=== PATIENT | female | born 1955 | race Caucasian/White ===

== ENCOUNTER → 2017-03-09 | Outpatient (CLI) | payer BC ==
[~2017-03-09] MED LIST: ACET325T82 PO; ASPI-232 PO; DOXY100C2 PO; IBUP-103 PO; MULT-884 PO
[2017-03-09 16:20] LABS: THYROID STIMULATING HORMONE 2.22 uIu/ml (0.300-4.500)
== END | disposition home or self-care (01) ==
LOC: C.LAB1850 14:44
PROVIDERS: ATTEND Physician Assistant
DX: E05.00 Thyrotoxicosis with diffuse goiter without thyrotoxic crisis or storm (principal)

== ENCOUNTER → 2017-06-10 | Outpatient (CLI) | payer BC ==
[~2017-06-10] MED LIST changes: -DOXY100C2 PO
[2017-06-10 18:07] LABS: THYROID STIMULATING HORMONE 3.22 uIu/ml (0.300-4.500)
== END | disposition home or self-care (01) ==
LOC: C.LAB1850 16:38
PROVIDERS: ATTEND Physician Assistant
DX: E05.90 Thyrotoxicosis, unspecified without thyrotoxic crisis or storm (principal)

== ENCOUNTER → 2017-07-22 | Outpatient (CLI) | payer BC ==
[2017-07-22 15:20] LABS: THYROID STIMULATING HORMONE 2.39 uIu/ml (0.300-4.500)
== END | disposition home or self-care (01) ==
LOC: C.LAB1850 13:45
PROVIDERS: ATTEND Physician Assistant
DX: E05.90 Thyrotoxicosis, unspecified without thyrotoxic crisis or storm (principal)

== ENCOUNTER → 2017-07-28 | Outpatient (CLI) | payer BC ==
--- NOTE | 2017-07-28 11:58 | DIAGNOSTIC IMAGING REPORT ---
RIGHT LOWER EXTREMITY VENOUS DOPPLER CLINICAL HISTORY: Right leg pain and swelling COMPARISON STUDY: No previous studies for comparison. TECHNIQUE: Sonography of the deep venous system of the right lower extremity was performed. Compression and augmentation were evaluated. FINDINGS: The right common femoral, superficial femoral and popliteal veins were compressible. Augmentation was normal. Flow was shown within the deep calf vessels. Sonography of the posterior right calf revealed no abnormality. IMPRESSION: No evidence of deep venous thrombus within the right lower extremity. Electronically signed by: Mando Nash M.D. 07/28/2017 11:56 AM Dictated Date/Time: 07/28/2017 11:56 AM
== END | disposition home or self-care (01) ==
LOC: C.ULTRBC 11:17
PROVIDERS: ATTEND Physician Assistant Medical
DX: M79.89 Other specified soft tissue disorders (principal)

== ENCOUNTER → 2017-09-12 | Outpatient (CLI) | payer BC ==
[~2017-09-12] MED LIST changes: +DOXY100C2 PO
[2017-09-12 18:34] LABS: THYROID STIMULATING HORMONE 3.39 uIu/ml (0.300-4.500)
== END | disposition home or self-care (01) ==
LOC: C.LAB1850 16:44
PROVIDERS: ATTEND Physician Assistant
DX: E03.9 Hypothyroidism, unspecified (principal)

== ENCOUNTER → 2017-10-24 | Outpatient (CLI) | payer BC ==
[~2017-10-24] MED LIST changes: -ACET325T82 PO; -ASPI-232 PO; -IBUP-103 PO; -MULT-884 PO
--- NOTE | 2017-10-24 16:07 | DIAGNOSTIC IMAGING REPORT ---
CHEST 2 VIEWS ROUTINE CLINICAL HISTORY: Cough. COMPARISON STUDY: Chest radiograph February 01, 2014. FINDINGS: Incidental note is made of suspected calcific tendinitis of the left rotator cuff. The lung volumes are normal. No pneumothorax or pleural effusion is present. No consolidation is identified. Pulmonary vascularity is normal. Cardiomediastinal silhouette is normal. IMPRESSION: No acute cardiopulmonary findings. Electronically signed by: Mando Nash M.D. 10/24/2017 4:06 PM Dictated Date/Time: 10/24/2017 4:05 PM
== END | disposition home or self-care (01) ==
LOC: C.RAD1850 15:11
PROVIDERS: ATTEND Physician Assistant Medical
DX: R05 Cough (principal)

== ENCOUNTER → 2017-11-21 | Outpatient (CLI) | payer BC ==
[2017-11-21 13:35] LABS: HEMOGLOBIN A1C 5.3 % (4.5-5.6)
== END | disposition home or self-care (01) ==
LOC: C.LAB1850 11:49
PROVIDERS: ATTEND Internal Medicine Endocrinology, Diabetes & Metabolism
DX: E03.9 Hypothyroidism, unspecified (principal); R35.0 Frequency of micturition

== ENCOUNTER → 2017-12-26 | Outpatient (CLI) | payer BC | LOC: C.LAB1850 17:02 | PROVIDERS: ATTEND Internal Medicine Endocrinology, Diabetes & Metabolism | DX: E03.9 Hypothyroidism, unspecified (principal) ==

== ENCOUNTER → 2018-01-17 | Outpatient (CLI) | payer BC | END | disposition home or self-care (01) | LOC: C.LAB 18:02 | PROVIDERS: ATTEND Internal Medicine Endocrinology, Diabetes & Metabolism | DX: E03.9 Hypothyroidism, unspecified (principal) ==

== ENCOUNTER → 2018-01-27 | Outpatient (CLI) | payer BC | END | disposition home or self-care (01) | LOC: C.LAB1850 09:54 | PROVIDERS: ATTEND Internal Medicine Endocrinology, Diabetes & Metabolism | DX: E05.00 Thyrotoxicosis with diffuse goiter without thyrotoxic crisis or storm (principal) ==

== ENCOUNTER → 2018-03-03 | Outpatient (CLI) | payer BC | END | disposition home or self-care (01) | LOC: C.LAB1850 12:51 | PROVIDERS: ATTEND Internal Medicine Endocrinology, Diabetes & Metabolism | DX: E03.9 Hypothyroidism, unspecified (principal) ==

== ENCOUNTER 2021-02-02 16:00 | Inpatient (IN) ==
[2021-02-02 17:15] LABS: Basophils # (auto) 0.03 K/uL (0-0.2); Basophils % (auto) 0.4 %; Eosinophils # (auto) 0.02 K/uL (0-0.5); Eosinophils % (auto) 0.3 %; Hematocrit (blood only) 42.3 % (37-47); Hemoglobin 14.9 g/dL (12.0-16.0); Immature Granulocytes # (auto) 0.02 K/uL (0.00-0.02); Immature Granulocytes % (auto) 0.3 %; Lymphocytes # (auto) 1.64 K/uL (1.2-3.4); Lymphocytes % (auto) 20.8 %; Mean Corpuscular Hemoglobin 31.6 pg (25-34); Mean Corpuscular Hgb Conc 35.2 g/dL (32-36); Mean Corpuscular Volume 89.8 fL (80-100); Mean Platelet Volume 11.2 fL (7.4-10.4); Monocytes # (auto) 0.39 K/uL (0.11-0.59); Monocytes % (auto) 4.9 %; Neutrophils # (auto) 5.79 K/uL (1.4-6.5); Neutrophils % (auto) 73.3 %; Platelet Count 238 K/uL (130-400); RDW Coefficient of Variation 12.2 % (11.5-14.5); Red Blood Count 4.71 M/uL (4.2-5.4); White Blood Count 7.89 K/uL (4.8-10.8)
[2021-02-02 17:37] LABS: Alanine Aminotransferase 32 U/L (12-78); Albumin Level 4.2 gm/dl (3.4-5.0); Aspartate Aminotransferase 29 U/L (15-37); BUN Creatinine Ratio 22.1 (10-20); Blood Urea Nitrogen 19 mg/dl (7-18); Calcium 9.6 mg/dl (8.5-10.1); Carbon Dioxide 29 mmol/L (21-32); Chloride 106 mmol/L (98-107); Creatinine Clr Calc Pharmacy 69.2 ml/min; Est GFR (African American) 85.7; Glucose 99 mg/dl (70-99); Lipase 117 U/L (73-393); Potassium 3.9 mmol/L (3.5-5.1); Sodium 138 mmol/L (136-145)
[2021-02-02 17:40] LABS: Partial Thromboplastin Ratio 0.9; Partial Thromboplastin Time 24.9 Seconds (21.0-31.0); Prothrombin Time 9.8 Seconds (9.0-12.0)
[2021-02-02] MEDS ORDERED: ASPIRIN 81 MG CHEW PO STA (17:40)
[2021-02-02 17:41] LABS: Albumin Globulin Ratio 1.1 (0.9-2); Alkaline Phosphatase 139 U/L (45-117); Bilirubin,Total 0.6 mg/dl (0.2-1); Creatine Kinase 66 U/L (26-192); Creatine Kinase MB < 1.0 ng/ml (0.5-3.6); Globulin 3.8 gm/dl (2.5-4.0); Troponin I < 0.015 ng/ml (0-0.045)
--- NOTE | 2021-02-02 17:51 | XRay Report ---
SINGLE VIEW CHEST CLINICAL HISTORY: Unstable angina. FINDINGS: An AP, portable, upright chest radiograph is compared to study dated 10/24/2017. The cardio mediastinal silhouette is unremarkable. The lungs and pleural spaces are clear. No pneumothorax is se en. The skeletal structures appear osteopenic. The bony thorax is grossly intact. IMPRESSION: No acute cardiopulmonary abnormality. ACT 112: Negative or not required by law. Electronically signed by: Morgan Mcfarland M.D. 02/02/2021 5:49 PM
--- NOTE | 2021-02-02 18:12 | Emergency Department Note ---
Impression & Plan Chest pain ED Provider Note NAME: MARTINE ELLSWORTH AGE: 65 SEX: F : 1955 ARRIVES VIA: Walk-In INFORMANT: Patient, ED PROVIDER(S): Marcelo García MD CHIEF COMPLAINT: Abnormal Stress test HPI: This 65-year-old female who presents emergency department complaining of an abnormal stress test. The patient was sent in by her foamite mixer over concerns that her stress test was abnormal. He is requesting that the patient be admitted to the medicine service for a cath tomorrow. Upon arrival to the emerg ency department the patient has no chest pain and reports she is comfortable. She reports exertion makes the chest pain worse however rest makes it better. ROS: See above HPI for pertinent positives & negatives. A total of 10 systems reviewed and were otherwise negative. PAST MEDICAL HISTORY: See Below PAST SURGICAL HISTORY: See Below FAMILY HISTORY: See Below SOCIAL HISTORY: See Below HOME MEDICATIONS: See Below ALLERGIES: See Below VITALS: See Below PHYSICAL EXAMINATION: VITAL SIGNS - Vital signs and nursing notes were reviewed. GENERAL - 65-year-old female appearing stated age who is in no acute distress. Communicates well with provider and answers questions appropriately. SKIN - Without rashes. HEAD - NC/AT. EYES - PERRL with EOMI bilaterally. Sclera anicteric. Palpebral conjunctiva pink and moist with no injection noted. EARS - No deformities of external structures noted on gross examination bilaterally. NOSE - Midline and without cyanosis. No epistaxis or purulent drainage noted. Septum midline without deviation or septal hematoma noted. MOUTH/OROPHARYNX - Without perioral cyanosis. Buccal mucosa pink and moist and without leukoplakia. Tongue midline with equal elevation of palate bilaterally. No tonsillar hypertrophy, erythema, or exudates noted. dentition noted. NECK - Neck with FROM. Supple to palpation. lymphadenopathy noted. No nuchal rigidity. LUNGS - Chest wall symmetric without accessory muscle use, intercostals retractions, or central cyanosis. Normal vesicular breath sounds CTA B/L. No wheezes, rales, or rhonchi appreciated. CARDIAC - RRR with S1/S2. No murmur, rubs, or gallops appreciated. ABDOMEN - Abdominal contour without pulsations or visible masses. BS normoactive all four quadrants. No tenderness, palpable masses, hepatosplenomegaly, or ascites noted. EXTREMITIES - No clubbing or peripheral cyanosis. No pretibial edema present. +3/5 radial, posterior tibial, and dorsalis pedis pulses palpated throughout. +5/5 strength noted in UE/LE bilaterally. NEUROLOGIC - Cranial nerves II through XII grossly intact. Sensory intact to light touch throughout. Patellar reflexes +2/4. PSYCH - A&Ox3 and cooperates fully with examiner. Pt is very pleasant and interacts well with examiner. MEDICAL DECISION MAKING: Patient was seen and evaluated as above in room A9. Review was performed of nursing notes and vital signs. I did review pertinent previous visits and patient history. After obtaining a thorough history and physical examination the above work up was performed. This 65-year-old female who presents emergency department complaining of failed outpatient stress test. The patient was sent for admission as well as cardiac cath tomorrow morning. I did discuss the case with the hospitalist service who did agree to meet the patient. Her EKG does not show any evidence of ischemia and she does not have an elevation in her troponin. Patient and family are in agreement with the treatment plan. An order was placed for continuous cardiac monitoring. The monitor shows a rate of 83 with Normal SInus rhythm. The patient was evaluated during a period of high volume and high acuity during the global COVID-19 pandemic, and that diagnosis was suspected/considered upon their initial presentation. Their evaluation, treatment and testing was consistent with current guidelines for patients who present with complaints or symptoms that may be related to COVID-19. Patient was seen while provider was wearing PPE. Triage Nursing notes reviewed. Prior medical records reviewed Vital Signs: reviewed and remarkable for no significant abnormalities Differential diagnosis: Cardiac ischemia, aortic dissection, pulmonary embolism, pneumothorax, pneumonia, pericarditis, myocarditis, esophageal rupture, GERD, cholecystitis, pancreatitis, musculoskeletal, as well as other pathologies. ER treatment provided: See below Diagnostics interpreted by me: ECG: EKG shows a normal sinus rhythm with sinus arrhythmia QTC is 434 ventricular rate is [address] elevation or depression there is no previous EKG to compare to. Laboratory studies: As stated above and show below. Imaging studies:[facility], [id number] XRay Report Patient: MARTINE ELLSWORTH Date: 02/02/21#: [id number]: [id number] STAcct ID:[id number]: Date: 1955City Zip: [place] [address]Rxn: 65Location: EDSex: FRoom/Bed:Att Phy:Diagnosis: ref by doctor-chest pain-possibly needing cathPri Phy: Evy Grant, DOService Date: 02/02/21Fam Phy:Interpreting Phy: Morgan Mcfarland MDAdmit Phy: Ordering Phy: Inga Lafleur PA-C cc: ~ SINGLE VIEW CHEST CLINICAL HISTORY: Unstable angina. FINDINGS: An AP, portable, upright chest radiograph is compared to study dated 10/24/2017. The cardiomediastinal silhouette is unremarkable. The lungs and pleural spaces are clear. No pneumothorax is seen. The skeletal structures appe ar osteopenic. The bony thorax is grossly intact. IMPRESSION: No acute cardiopulmonary abnormality. ACT 112: Negative or not required by law. Electronically signed by: Morgan Mcfarland M.D. 02/02/2021 5:49 PM Dictated: 02/02/[id number]: 02/02/[id number] See below Consultation(s): Cardiac, Internal medicine Past Med/Surg History Medical History Herpes simplex vulvovaginitis History of hyperthyroidism Irritable bowel syndrome (IBS) Thyrotoxicosis without thyroid storm Surgical History H/O wisdom tooth extraction Family History Family/Other Ovarian cancer Brother Coronary heart disease, Onset Age: 52 Denies family history of Prostate cancer Myocardial infarction Breast cancer Colorectal cancer Social History Smoking Status: Never smoker Hx Alcohol Use: No Hx Substance Use: No Preferred Language: Kyrgyz Communication Ability: Effective Visual Impairment: No Limitations Hearing Ability: Normal Relationship Advisor Required: No Beliefs That Will Affect Care: None marital status: Single Current Living Situation: Alone current occupational status: employed 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 Feels Safe at Home: Yes Childhood Exposure to Second-Hand Smoke: No Dental Care, Regularly: Yes Physical Activity Frequency: Does not Exercise Seatbelt Use: always Sunscreen Use: Yes Assistive Devices: Denture - Upper and Glasses Allergies Allergies Allergy/AdvReac Type Severity Reaction Status Date / Time Penicillins AdvReac Mild yeast Verified 02/02/21 16:46 infection Home Meds Home Medications Medication Instructions Recorded Confirmed acetaminophen 325 mg tablet 325 mg PO Q4H PRN tab 08/06/19 02/02/21 ibuprofen 200 mg tablet 200 mg PO TID PRN tab 08/06/19 02/02/21 vitamin B complex 1 cap PO DAILY 08/06/19 02/02/21 cholecalciferol (vitamin D3) 50 2,000 units PO DAILY 11/03/19 02/02/21 mcg (2,000 unit) tablet hydroxyzine HCl 10 mg PO Q6H PRN 02/02/21 02/02/21 multivitamin 1 tab PO DAILY 02/02/21 02/02/21 omeprazole 20 mg PO DAILY 02/02/21 02/02/21 Previous Rx's Medication Instructions Recorded aspirin 81 mg PO QAM #30 tab 02/03/21 atorvastatin 40 mg PO HS #30 tab 02/03/21 Results & Data (ED) Vital Signs Vital Signs - 24 hr 02/02/21 16:20 02/02/21 16:44 02/02/21 16:45 Temperature 36.4 C L Temperature Source Temporal Artery Scan Pulse Rate 95 H 88 Pulse Rate [Apical] 85 Pulse Rhythm Regular Regular Pulse Rhythm [Apical] Regular Pulse Strength Normal Pulse Strength [Apical] Normal Respiratory Rate 18 16 16 Respiratory Effort / Characteristics Non-Labored Spontaneous Non-Labored Spontaneous Respiratory Depth Normal Normal Respiratory Pattern Regular Regular Blood Pressure 146/83 H Blood Pressure [Left Arm] 146/85 H Blood Pressure Mean 104 Blood Pressure Mean [Left Arm] 105 Blood Pressure Position Sitting Blood Pressure Position [Left Arm] Semi-fowlers Pulse Oximetry 99 98 98 Oxygen Delivery Method Room Air Room Air Room Air Sepsis Recent Fever Within 48 Hours No Sepsis New/Unexplained Change in Mental Status N/A Sepsis Action Taken by Nursing No Action Required Laboratory Data Result diagrams: 02/03/21 06:31 02/03/21 06:31 Lab Results 02/02/21 02/02/21 02/02/21 Range/Units 16:59 16:59 16:59 WBC 7.89 (4.8-10.8) K/uL RBC 4.71 (4.2-5.4) M/uL Hgb 14.9 (12.0-16.0) g/dL Hct 42.3 (37-47) % MCV 89.8 (80-100) fL MCH 31.6 (25-34) pg MCHC 35.2 (32-36) g/dL RDW Std Deviation 40.0 (36.4-46.3) fL RDW Coeff of Josefa 12.2 (11.5-14.5) % Plt Count 238 (130-400) K/uL MPV 11.2 H (7.4-10.4) fL Immature Gran % (Auto) 0.3 % Neut % (Auto) 73.3 % Lymph % (Auto) 20.8 % [place] % (Auto) 4.9 % Eos % (Auto) 0.3 % Baso % (Auto) 0.4 % Neut # (Auto) 5.79 (1.4-6.5) K/uL Lymph # (Auto) 1.64 (1.2-3.4) K/uL [place] # (Auto) 0.39 (0.11-0.59) K/uL Eos # (Auto) 0.02 (0-0.5) K/uL Baso # (Auto) 0.03 (0-0.2) K/uL Immature Gran # (Auto) 0.02 (0.00-0.02) K/uL PT 9.8 (9.0-12.0) Seconds INR 1.0 (0.9-1.1) APTT 24.9 (21.0-31.0) Seconds PTT Ratio 0.9 Sodium 138 (136-145) mmol/L Potassium 3.9 (3.5-5.1) mmol/L Chloride 106 (98-107) mmol/L Carbon Dioxide 29 (21-32) mmol/L Anion Gap 4.0 (3-11) BUN 19 H (7-18) mg/dl Creatinine 0.84 (0.6-1.2) mg/dl Est Cr Clr Drug Dosing 69.2 ml/min Est GFR ( Amer) 85.7 Est GFR (Non-Af Amer) 74.0 BUN/Creatinine Ratio 22.1 H (10-20) Glucose 99 (70-99) mg/dl Calcium 9.6 (8.5-10.1) mg/dl Total Bilirubin 0.6 (0.2-1) mg/dl AST 29 (15-37) U/L ALT 32 (12-78) U/L Alkaline Phosphatase 139 H (45-117) U/L Total Creatine Kinase 66 (26-192) U/L CK-MB (CK-2) < 1.0 (0.5-3.6) ng/ml CK/CKMB % Calc TNP Troponin I < 0.015 (0-0.045) ng/ml Total Protein 8.0 (6.4-8.2) gm/dl Albumin 4.2 (3.4-5.0) gm/dl Globulin 3.8 (2.5-4.0) gm/dl Albumin/Globulin Ratio 1.1 (0.9-2) Lipase 117 (73-393) U/L Specimen Hemolysis COVID-19 Eval Order SARS-CoV-2 (PCR) (Negative) Influenza Type A (PCR) (Neg) Influenza Type B (PCR) (Neg) RSV (RT-PCR) (Neg) 02/02/21 02/02/21 Range/Units 17:17 17:17 WBC (4.8-10.8) K/uL RBC (4.2-5.4) M/uL Hgb (12.0-16.0) g/dL Hct (37-47) % MCV (80-100) fL MCH (25-34) pg MCHC (32-36) g/dL RDW Std Deviation (36.4-46.3) fL RDW Coeff of Josefa (11.5-14.5) % Plt Count (130-400) K/uL MPV (7.4-10.4) fL Immature Gran % (Auto) % Neut % (Auto) % Lymph % (Auto) % [place] % (Auto) % Eos % (Auto) % Baso % (Auto) % Neut # (Auto) (1.4-6.5) K/uL Lymph # (Auto) (1.2-3.4) K/uL [place] # (Auto) (0.11-0.59) K/uL Eos # (Auto) (0-0.5) K/uL Baso # (Auto) (0-0.2) K/uL Immature Gran # (Auto) (0.00-0.02) K/uL PT (9.0-12.0) Seconds INR (0.9-1.1) APTT (21.0-31.0) Seconds PTT Ratio Sodium (136-145) mmol/L Potassium (3.5-5.1) mmol/L Chloride (98-107) mmol/L Carbon Dioxide (21-32) mmol/L Anion Gap (3-11) BUN (7-18) mg/dl Creatinine (0.6-1.2) mg/dl Est Cr Clr Drug Dosing ml/min Est GFR ( Amer) Est GFR (Non-Af Amer) BUN/Creatinine Ratio (10-20) Glucose (70-99) mg/dl Calcium (8.5-10.1) mg/dl Total Bilirubin (0.2-1) mg/dl AST (15-37) U/L ALT (12-78) U/L Alkaline Phosphatase (45-117) U/L Total Creatine Kinase (26-192) U/L CK-MB (CK-2) (0.5-3.6) ng/ml CK/CKMB % Calc Troponin I (0-0.045) ng/ml Total Protein (6.4-8.2) gm/dl Albumin (3.4-5.0) gm/dl Globulin (2.5-4.0) gm/dl Albumin/Globulin Ratio (0.9-2) Lipase (73-393) U/L Specimen Hemolysis COVID-19 Eval Order [facility]Rsv at [facility] SARS-CoV-2 (PCR) NEGATIVE (Negative) Influenza Type A (PCR) Negative (Neg) Influenza Type B (PCR) Negative (Neg) RSV (RT-PCR) Negative (Neg) Administered Medications Discontinued Medications Aspirin (Aspirin 81 Mg Chew) 324 mg PO NOW STA Stop: 02/02/21 17:41 Last Admin: 02/02/21 18:19 Dose: 324 mg Documented by: [id number] Aspirin (Aspirin 81 Mg Ectab) [facility] Stop: 03/05/21 08:59 Last Admin: 02/03/21 08:32 Dose: 81 mg Documented by: [id number] Atorvastatin Calcium (Atorvastatin 40 Mg Tab) 40 mg PO [facility] Stop: 03/04/21 20:59 Last Admin: 02/02/21 21:41 Dose: 40 mg Documented by: [id number] Fentanyl Citrate (Fentanyl Citrate 100 Mcg/2 Ml Vial) Confirm Administered Dose 100 mcg .ROUTE .STK-MED ONE Stop: 02/03/21 11:44 Last Admin: 02/03/21 11:58 Dose: Not Given Documented by: [id number] Heparin Sodium (Porcine) (Heparin (Porcine) 1000 Unit/Ml 10 Ml (Head Of Art Use Only)) Confirm Administered Dose 10,000 units .ROUTE .STK-MED ONE Stop: 02/03/21 11:43 Last Admin: 02/03/21 11:58 Dose: 2,000 units Documented by: [id number] Heparin Sodium/Sodium Chloride (Heparin In Nss Infusion 1000 Unit/500 Ml (2 U/Ml) Bag) Confirm Administered Dose 3,000 units IV .STK-MED ONE Stop: 02/03/21 11:44 Last Admin: 02/03/21 11:57 Dose: 3,000 units Documented by: [id number] Hydroxyzine HCl (Hydroxyzine Hcl 10 Mg Tab) 10 mg PO Q6H PRN PRN Reason: Anxiety Stop: 03/04/21 17:46 Last Admin: 02/03/21 08:54 Dose: 10 mg Documented by: [id number] Admin: 02/02/21 22:22 Dose: 10 mg Documented by: [id number] Sodium Chloride (Nss 1000ml) 1,000 mls @ 80 mls/hr IV .[id number] [facility] Stop: 03/04/21 21:59 Last Admin: 02/03/21 10:32 Dose: 80 mls/hr Documented by: [id number] Infusion: 02/03/21 10:11 Dose: 80 mls/hr Documented by: [id number] Admin: 02/02/21 21:41 Dose: 80 mls/hr Documented by: [id number] Midazolam HCl (Midazolam Hcl 1 Mg/Ml 2ml Vial) Confirm Administered Dose 2 mg .ROUTE .STK-MED ONE Stop: 02/03/21 11:43 Last Admin: 02/03/21 11:58 Dose: 1 mg Documented by: [id number] Multivitamins (Multivitamin Tab) 1 tab PO DAILY [facility] Stop: 03/05/21 08:59 Last Admin: 02/03/21 08:32 Dose: 1 tab Documented by: [id number] Nicardipine HCl (Nicardipine Hcl Inj 2.5 Mg/Ml 10 Ml Amp) Confirm Administered Dose 25 mg .ROUTE .STK-MED ONE Stop: 02/03/21 11:43 Last Admin: 02/03/21 11:57 Dose: 25 mg Documented by: [id number] Nitroglycerin/Dextrose (Nitroglycerin/D5w 100mcg/Ml 20ml Syr) Confirm Administered Dose 2,000 mcg .ROUTE .STK-MED ONE Stop: 02/03/21 11:44 Last Admin: 02/03/21 11:57 Dose: 2,000 mcg Documented by: [id number] Pantoprazole Sodium (Pantoprazole 40 Mg Tab) 40 mg PO DAILY [facility] Stop: 03/05/21 08:59 Last Admin: 02/03/21 08:32 Dose: 40 mg Documented by: [id number] Vitamin B Complex (Vitamin B Complex Tab) 1 tab PO DAILY [facility] Stop: 03/05/21 08:59 Last Admin: 02/03/21 08:32 Dose: 1 tab Documented by: [id number] Vitamin D (Cholecalciferol 1,000 Units 25 Mcg Tab) 2,000 units PO DAILY [facility] Stop: 03/05/21 08:59 Last Admin: 02/03/21 08:32 Dose: 2,000 units Documented by: [id number] Discharge Plan Visit Data Chief Complaint: Chest Pain Stated Complaint: ref by doctor-chest pain-possibly needing cath ED Provider: Marcelo García Discharge Problem: Chest pain Patient Disposition: Admitted As Inpatient Discharge Instructions Interventions: ED Discharge Assessment Last Done: 02/02/21 20:22 Discharge Problem: Chest pain Qualifiers: Chest pain type: unspecified Qualified Code(s): R07.9 - Chest pain, unspecified
[2021-02-02 18:17] LABS: Influenza A virus by PCR Negative (Neg); Influenza B virus by PCR Negative (Neg); RSV by PCR Negative (Neg); SARS CoV2 RNA(COVID-19) InHosp NEGATIVE (Negative)
[2021-02-02] MEDS ORDERED: ONDANSETRON INJ 2 MG/ML 2 ML VIAL IV PRN (20:56)
[2021-02-02] MEDS ORDERED: ACETAMINOPHEN 325 MG TAB PO PRN (20:56)
[2021-02-02] MEDS ORDERED: POLYETHYLENE (MIRALAX) 17 GM PACK PO PRN (20:56)
[2021-02-02] MEDS ORDERED: ATORVASTATIN 40 MG TAB PO SCH (21:00)
--- NOTE | 2021-02-02 21:18 | History and Physical Report ---
DATE OF ADMISSION: 02/02/2021 CHIEF COMPLAINT: Chest pain. HISTORY OF PRESENT ILLNESS: This is a 65-year-old female with past medical history significant for history of thyrotoxicosis without mention of goiter, irritable bowel syndrome, depression, presents with chest pain. The patient was recently diagnosed with UTI and getting a 10-day treatment with nitrofurantoin; last dose is tomorrow. The lower abdominal pain is improving, but still has some increased micturition. She says she is getting chest pain on and off since October. She recently had an exercise stress echocardiogram on 01/30/2021, it showed diffuse left ventricular hypokinesis with EF of 50% without regional wall motion abnormalities. Post-exercise, no focal stress-induced wall motion abnormalities were noted; however, the left ventricular systolic function did not increase with exercise and also there are some ST segment changes noted to be equivocal and she again went to cardiology office today because of some chest pain on the left side below the breast region, 5/10 in severity, as well pressure like feeling. It lasted for about half an hour. She still has now very minimal chest discomfort. Denies any shortness of breath. No nausea, no dizziness. She has some dry cough on and off. No fever, no chills, no dysphagia. Appetite is okay. No headache, no blurred vision, no earache, no runny nose, no sore throat, no abdominal pain currently. She has diarrhea from her irritable bowel syndrome. She thinks her stools are little black from the antibiotic. Ambulating without support. Lives alone. ALLERGIES: PENICILLINS. PAST MEDICAL HISTORY: As mentioned above. PAST SURGICAL HISTORY: Left breast lesion excision, dental surgery. MEDICATIONS: The patient is on Tylenol 325 mg p.o. q.4 hours p.r.n., vitamin D 2000 units p.o. daily, hydroxyzine 10 mg p.o. q.6 hours p.r.n., ibuprofen 200 mg t.i.d. p.r.n., multivitamin 1 tablet p.o. daily, omeprazole 20 mg p.o. daily, vitamin B complex 1 capsule daily. FAMILY HISTORY: Significant for grandmother has diabetes. Mother has seasonal affective disorder. Father has heart disorder, lung disorder. Brother has heart disorder. SOCIAL HISTORY: Single. No smoking. Alcohol rarely. No drug use. REVIEW OF SYMPTOMS: As per HPI. Rest of the review of systems negative. PHYSICAL EXAMINATION: GENERAL: The patient is of moderate build, not in acute distress. VITAL SIGNS: Temperature 36.4, pulse 87, respirations 17, blood pressure 152/81, oxygen 98% on room air. HEENT: Pupils equal, round, reactive to light. Oral mucosa moist. NECK: No JVD seen, no neck masses seen. CARDIOVASCULAR: S1, S2 heard, regular rate and rhythm, no murmur, no gallop. RESPIRATORY SYSTEM: Normal AP diameter. No accessory muscle use. No wheezing, no crackles. ABDOMEN: Soft, bowel sounds present, nontender. No distention. CENTRAL NERVOUS SYSTEM: Cranial nerves II-XII grossly intact. Nonfocal. EXTREMITIES: Mild pedal edema, no erythema seen. LABORATORY DATA: WBC 7.8, hemoglobin 14.9, hematocrit 42.3, platelets 238. PT 9.8, INR 1, APTT 24.9. Sodium 138, potassium 3.9, chloride 106, bicarbonate 29, BUN 19, creatinine 0.8, serum glucose 99, calcium 10.6, total bilirubin 0.6, AST 29, ALT 32, alkaline phosphatase 139, total creatine kinase 66. Troponin I less than 0.015. Lipase 117. SARS-CoV-2 PCR negative. Influenza A and B PCR negative, RSV PCR negative. IMAGING: Chest x-ray: No acute cardiopulmonary abnormalities seen. EKG: Normal sinus rhythm with sinus arrhythmia, rate of 83. ASSESSMENT AND PLAN: A 65-year-old female who presents with chest pain. 1. Chest pain, possible unstable angina: The patient has abnormal stress test on 01/30/2021, went to cardiology office with chest pain, was advised to come to the Emergency Room for possible cardiac catheterization. Currently, EKG and troponin are negative. Will admit her to telemetry floor. We will do serial enzymes, lipid profile and keep her n.p.o. after midnight. Received a dose of aspirin in the Emergency Room; we will continue with aspirin 81 mg daily and high-dose statin and possible cardiac catheterization in a.m. Cardiology consult in a.m. Gentle fluids in anticipation of cardiac cath. Closely monitor. 2. Gastroesophageal reflux disease: Continue omeprazole. 3. History of irritable bowel syndrome: We will monitor. 4. History of thyrotoxicosis: We will follow the thyroid profile. 5. History of urinary tract infection: Has 1 more dose of nitrofurantoin. We will repeat urinalysis. 6. Deep vein thrombosis prophylaxis: Sequential compression devices. DISPOSITION: Admit to tele floor. Expect discharge home and follow with family doctor. VANESA
[2021-02-02] MEDS: SODIUM CHLORIDE 0.9% 1000ML 1,000 ML IV SCH (21:41)
[2021-02-02] MEDS: hydrOXYzine HCl 10 MG TAB PO PRN (22:22)
[2021-02-02 23:11] LABS: Appearance Urine Clear (Clear); Bilirubin Urine Negative (Negative); Blood Urine Negative (Negative); Color Urine Yellow; Glucose Urine UA Negative (Negative); Ketones Urine Negative (Negative); Leukocyte Esterase Urine Negative (Negative); Nitrite Urine Negative (Negative); Protein Urine Negative (Negative); Specific Gravity Urine 1.015 (1.000-1.030); Urobilinogen Urine Negative (Negative); pH Urine 6.5 (4.5-7.5)
[2021-02-03 07:04] LABS: Hematocrit (blood only) 39.1 % (37-47); Hemoglobin 13.4 g/dL (12.0-16.0); Mean Corpuscular Hemoglobin 30.9 pg (25-34); Mean Corpuscular Hgb Conc 34.3 g/dL (32-36); Mean Corpuscular Volume 90.1 fL (80-100); Mean Platelet Volume 11.2 fL (7.4-10.4); Platelet Count 216 K/uL (130-400); RDW Coefficient of Variation 12.4 % (11.5-14.5); RDW Standard Deviation 40.7 fL (36.4-46.3); Red Blood Count 4.34 M/uL (4.2-5.4); White Blood Count 6.67 K/uL (4.8-10.8)
[2021-02-03 07:39] LABS: Estimated Average Glucose 108 mg/dl; Hemoglobin A1C 5.4 % (4.5-5.6)
[2021-02-03 07:45] LABS: BUN Creatinine Ratio 21.6 (10-20); Blood Urea Nitrogen 16 mg/dl (7-18); Carbon Dioxide 27 mmol/L (21-32); Chloride 110 mmol/L (98-107); Cholesterol 190 mg/dl (0-200); Creatinine Clr Calc Pharmacy 80.6 ml/min; Est GFR (African American) 98.3; Est GFR (Non-African American) 84.8; Glucose 88 mg/dl (70-99); Potassium 3.7 mmol/L (3.5-5.1); Sodium 141 mmol/L (136-145); Triglycerides 65 mg/dl (0-150); VLDL Cholesterol 13 mg/dl
[2021-02-03 07:55] LABS: Chol HDL Ratio 3; HDL Cholesterol 72 mg/dl; LDL Cholesterol Calculated 105 mg/dl; Troponin I < 0.015 ng/ml (0-0.045)
--- NOTE | 2021-02-03 08:37 | Cardiology Consultation ---
Date of Consultation February 03, 2021 Assessment & Plan (1) Unstable angina pectoris: Patient with symptoms concerning for unstable angina, abnormal exercise stress echocardiogram, and family history of CAD in her brother. Mild chest pain overnight just after arrival to the floor. Feels well this am. Continue ASA, statin therapy. Cardiac catheterization planned for today with Dr Recio. History of Present Illness Attending Physician: Osmar Soriano MD History of Present Illness Jeannette Cantu is a 65-year-old female seen in cardiology consultation per the request of Dr. García and Inga Lafleur PA-C for evaluation of chest discomfort. The patient recalls having had vague on off again chest discomfort that dates back to at least 3 months ago in October,. Recently, she had more symptoms, prompting an acute visit to the weekend clinic on 01/17/2021. EKG at that time revealed sinus rhythm with no significant repolarization changes. The patient went on to have an exercise stress echocardiogram on 01/30/2021. At that time the patient exercised 5 minutes and 30 seconds on a Adelso protocol, with noted equivocal 1 to [address] segment depression during exercise, with noted [address] segment depression late in the post exercise recovery interval. At rest, borderline diffuse left ventricular hypokinesis was noted with ejection fraction of 50%, without regional wall motion abnormalities. Mild mitral regurgitation was noted. Post exercise, no focal stress-induced wall motion abnormalities were noted, however the left ventricular systolic function to not increase with exercise. The exercise was terminated due to fatigue. Further discussion the patient today, she does describe that she felt a vague tightness in her left neck when she first. Treadmill exercise at the time of stress test. On 02/02/21, she was seen by the undersigned in outpatient cardiology consultation at [facility]. She described a 1/10 intensity right- sided chest discomfort. This is different than the previous discomfort that she has had under her left breast, as well as a separate midline chest discomfort.A repeat EKG was normal. She was referred to the ED and was since admitted. Tropin I levels were negative x 3 overnight. COVID-19 Screen was negative. Repeat EKG x two in the hospital has remained normal. FAMILY HISTORY: Mother: alive, at the age of 90. No known heart disease Father: at the age of 56. Suspected heart event Sister: Joelle, no heart disease Brother: Collin, recent CABG 1 month ago, prior stents 18 years ago Allergies Allergy/AdvReac Type Severity Reaction Status Date / Time Penicillins AdvReac Mild yeast Verified 02/02/21 16:46 infection Home Medications Medication Instructions Recorded Confirmed Type acetaminophen 325 mg tablet 325 mg PO Q4H PRN tab 08/06/19 02/02/21 History ibuprofen 200 mg tablet 200 mg PO TID PRN tab 08/06/19 02/02/21 History vitamin B complex 1 cap PO DAILY 08/06/19 02/02/21 History cholecalciferol (vitamin D3) 50 2,000 units PO DAILY 11/03/19 02/02/21 History mcg (2,000 unit) tablet hydroxyzine HCl 10 mg PO Q6H PRN 02/02/21 02/02/21 History multivitamin 1 tab PO DAILY 02/02/21 02/02/21 History omeprazole 20 mg PO DAILY 02/02/21 02/02/21 History Patient History Medical History Herpes simplex vulvovaginitis History of hyperthyroidism Irritable bowel syndrome (IBS) Thyrotoxicosis without thyroid storm Surgical History H/O wisdom tooth extraction Family History Family/Other Ovarian cancer Brother Coronary heart disease, Onset Age: 52 Denies family history of Prostate cancer Myocardial infarction Breast cancer Colorectal cancer Social History Smoking Status: Never smoker Hx Alcohol Use: No Hx Substance Use: No Preferred Language: Czech Communication Ability: Effective Visual Impairment: No Limitations Hearing Ability: Normal Tax Manager Cpa Required: No Beliefs That Will Affect Care: None marital status: Single Current Living Situation: Alone current occupational status: employed 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 Other Information That Helps Us Care for You: No Feels Safe at Home: Yes Safety Concerns: Feels Safe At This Time Childhood Exposure to Second-Hand Smoke: No Dental Care, Regularly: Yes Physical Activity Frequency: Does not Exercise Seatbelt Use: always Sunscreen Use: Yes Assistive Devices: Denture - Upper and Glasses Review of Systems Review of Systems: All systems reviewed & are unremarkable except as noted in HPI & below Physical Exam Physical Exam: Temp Pulse Resp BP Pulse Ox 36.4 C L 70 19 133/77 97 02/03/21 07:34 02/03/21 07:34 02/03/21 07:34 02/03/21 07:34 02/03/21 07:34 Constitutional: WD/WN, vitals as above Respiratory: normal respiratory effort, lungs clear to auscultation Cardiovascular: RRR, no murmur, no edema Gastrointestinal (Abdomen): normal bowel sounds, soft, nontender, no hepatosplenomegaly Neurologic: PERRL, EOMI, accommodation nl, no face palsy, no dysarthria Results & Data ([facility]) Vital Signs (Past 12 Hours) Vital Signs Temp Pulse Pulse Resp BP BP Pulse Ox 02/03/21 07:34 36.4 C L 70 19 133/77 97 02/03/21 07:10 65 02/03/21 03:15 36.8 C 78 19 111/60 96 02/03/21 00:32 68 02/02/21 23:28 37.1 C 79 17 125/81 97 02/02/21 20:45 36.7 C 91 H 20 147/91 H 98 Laboratory Results Cardiac Enzymes 02/02/21 02/02/21 02/03/21 Range/Units 16:59 22:55 06:31 AST 29 (15-37) U/L CK-MB (CK-2) < 1.0 (0.5-3.6) ng/ml Troponin I < 0.015 < 0.015 < 0.015 (0-0.045) ng/ml Coagulation 02/02/21 Range/Units 16:59 PT 9.8 (9.0-12.0) Seconds APTT 24.9 (21.0-31.0) Seconds Lipids 02/03/21 Range/Units 06:31 Triglycerides 65 (0-150) mg/dl Cholesterol 190 (0-200) mg/dl HDL Cholesterol 72 mg/dl Cholesterol/HDL Ratio 3 CBC 02/02/21 02/03/21 Range/Units 16:59 06:31 WBC 7.89 6.67 (4.8-10.8) K/uL RBC 4.71 4.34 (4.2-5.4) M/uL Hgb 14.9 13.4 (12.0-16.0) g/dL Hct 42.3 39.1 (37-47) % Plt Count 238 216 (130-400) K/uL Neut # (Auto) 5.79 (1.4-6.5) K/uL Lymph # (Auto) 1.64 (1.2-3.4) K/uL Eddy # (Auto) 0.39 (0.11-0.59) K/uL Eos # (Auto) 0.02 (0-0.5) K/uL Baso # (Auto) 0.03 (0-0.2) K/uL Comprehensive Metabolic Panel 02/02/21 02/03/21 Range/Units 16:59 06:31 Sodium 138 141 (136-145) mmol/L Potassium 3.9 3.7 (3.5-5.1) mmol/L Chloride 106 110 H (98-107) mmol/L Carbon Dioxide 29 27 (21-32) mmol/L BUN 19 H 16 (7-18) mg/dl Creatinine 0.84 0.75 (0.6-1.2) mg/dl Glucose 99 88 (70-99) mg/dl Calcium 9.6 9.0 (8.5-10.1) mg/dl AST 29 (15-37) U/L ALT 32 (12-78) U/L Alkaline Phosphatase 139 H (45-117) U/L Total Protein 8.0 (6.4-8.2) gm/dl Albumin 4.2 (3.4-5.0) gm/dl Intake and Output 02/02/21 02/03/21 02/03/21 22:59 06:59 14:59 Intake Total 0 / 0 Output Total 150 / 800 650 / 800 Balance -150 / -800 -650 / -800 Intake: Oral 0 / 0 Output: Urine 150 / 800 650 / 800 Other: Other Intake Source npo Weight 77.3 kg 77.2 kg Weight Measurement Method Standing Scale Standing Scale
--- NOTE | 2021-02-03 08:38 | Communication Note ---
Date of Service: February 03, 2021 This patient was admitted after an abnormal stress test. She is here for cardiac catheterization. I explained the risk, content and benefits of this procedure to the patient and she is willing to proceed.
--- NOTE | 2021-02-03 08:39 | Pre Anesthesia Assessment ---
Date of Service February 03, 2021 Pre Sedation Assessment Vital Signs Temp Pulse Pulse Resp BP BP BP 02/03/21 07:34 36.4 C L 70 19 133/77 02/03/21 07:10 65 02/03/21 03:15 36.8 C 78 19 111/60 02/03/21 00:32 68 02/02/21 23:28 37.1 C 79 17 125/81 02/02/21 20:45 36.7 C 91 H 20 147/91 H 02/02/21 20:01 85 15 02/02/21 20:00 80 114/87 02/02/21 19:31 87 16 02/02/21 19:30 84 16 140/79 02/02/21 19:26 84 26 H 136/77 02/02/21 19:01 84 12 02/02/21 19:00 85 16 122/92 02/02/21 18:31 87 17 02/02/21 18:30 93 H 17 152/81 H 02/02/21 18:01 88 22 02/02/21 18:00 91 H 18 150/80 H 02/02/21 17:31 74 13 02/02/21 17:30 75 16 142/86 H 02/02/21 17:00 79 16 02/02/21 16:55 79 13 02/02/21 16:45 80 85 13 146/85 H 146/85 H 02/02/21 16:44 88 16 02/02/21 16:20 36.4 C L 95 H 18 146/83 H Pulse Ox 02/03/21 07:34 97 02/03/21 07:10 02/03/21 03:15 96 02/03/21 00:32 02/02/21 23:28 97 02/02/21 20:45 98 02/02/21 20:01 98 02/02/21 20:00 97 02/02/21 19:31 97 02/02/21 19:30 98 02/02/21 19:26 98 02/02/21 19:01 97 02/02/21 19:00 96 02/02/21 18:31 98 02/02/21 18:30 99 02/02/21 18:01 97 02/02/21 18:00 98 02/02/21 17:31 99 02/02/21 17:30 98 02/02/21 17:00 02/02/21 16:55 02/02/21 16:45 98 02/02/21 16:44 98 02/02/21 16:20 99 Pre-Sedation Airway Assessment Smoking Status: Never smoker Notes The planned sedation has been discussed with the patient. Informed Consent was obtained. I have identified the patient, determined the appropriateness of sedation and have assessed the patient immediately prior to the procedure. All medicine(s) and interventions are by my order.
[2021-02-03] MEDS: hydrOXYzine HCl 10 MG TAB PO PRN (08:54)
[2021-02-03] MEDS ORDERED: VITAMIN B COMPLEX TAB PO SCH (09:00)
[2021-02-03] MEDS ORDERED: CHOLECALCIFEROL 1,000 UNITS 25 MCG TAB PO SCH (09:00)
[2021-02-03] MEDS ORDERED: ASPIRIN 81 MG ECTAB PO SCH (09:00)
[2021-02-03] MEDS ORDERED: PANTOprazole 40 MG TAB PO SCH (09:00)
[2021-02-03] MEDS ORDERED: MULTIVITAMIN TAB PO SCH (09:00)
[2021-02-03] MEDS: SODIUM CHLORIDE 0.9% 1000ML 1,000 ML IV SCH (10:32)
[2021-02-03] MEDS ORDERED: HEPARIN (PORCINE) 1000 UNIT/ML 10 ML (CATH LAB USE ONLY) ONE (11:42)
[2021-02-03] MEDS ORDERED: niCARdipine HCL INJ 2.5 MG/ML 10 ML AMP ONE (11:42)
[2021-02-03] MEDS ORDERED: MIDAZOLAM HCL 1 MG/ML 2ML VIAL ONE (11:42)
[2021-02-03] MEDS ORDERED: NITROGLYCERIN/D5W 100MCG/ML 20ML SYR ONE (11:43)
[2021-02-03] MEDS ORDERED: fentaNYL citrate 100 MCG/2 ML VIAL ONE (11:43)
--- NOTE | 2021-02-03 12:07 | Post Anesthesia Assessment ---
Date of Service February 03, 2021 Post Sedation Assessment Vital Signs Temp Pulse Pulse Resp BP BP BP 02/03/21 11:26 95 H 02/03/21 07:34 36.4 C L 70 19 133/77 02/03/21 07:10 65 02/03/21 03:15 36.8 C 78 19 111/60 02/03/21 00:32 68 02/02/21 23:28 37.1 C 79 17 125/81 02/02/21 20:45 36.7 C 91 H 20 147/91 H 02/02/21 20:01 85 15 02/02/21 20:00 80 114/87 02/02/21 19:31 87 16 02/02/21 19:30 84 16 140/79 02/02/21 19:26 84 26 H 136/77 02/02/21 19:01 84 12 02/02/21 19:00 85 16 122/92 02/02/21 18:31 87 17 02/02/21 18:30 93 H 17 152/81 H 02/02/21 18:01 88 22 02/02/21 18:00 91 H 18 150/80 H 02/02/21 17:31 74 13 02/02/21 17:30 75 16 142/86 H 02/02/21 17:00 79 16 02/02/21 16:55 79 13 02/02/21 16:45 80 85 13 146/85 H 146/85 H 02/02/21 16:44 88 16 02/02/21 16:20 36.4 C L 95 H 18 146/83 H Pulse Ox 02/03/21 11:26 94 02/03/21 07:34 97 02/03/21 07:10 02/03/21 03:15 96 02/03/21 00:32 02/02/21 23:28 97 02/02/21 20:45 98 02/02/21 20:01 98 02/02/21 20:00 97 02/02/21 19:31 97 02/02/21 19:30 98 02/02/21 19:26 98 02/02/21 19:01 97 02/02/21 19:00 96 02/02/21 18:31 98 02/02/21 18:30 99 02/02/21 18:01 97 02/02/21 18:00 98 02/02/21 17:31 99 02/02/21 17:30 98 02/02/21 17:00 02/02/21 16:55 02/02/21 16:45 98 02/02/21 16:44 98 02/02/21 16:20 99 Discharge Sedation Level of Care: Fast Track Phase II Post Sedation Plan On clinical assessment, the patient appears to have tolerated the sedation without complications. Patient is recovering as anticipated. Patient will continue to be monitored by nursing and may be discharged when sedation discharge criteria are met per below protocol. Upon Completions of procedure up to 15 minutes continue every 5 minute vital signs and the P.A.R. score; then discharge to a Phase I or Fast Track to Phase II per the following guidelines: * Discharge Patient to appropriate Phase II area if PAR is 8 or greater or return to pre- procedure baseline. The post - procedure orders will be as directed. * If PAR score is less than 8 or not return to pre-procedure baseline then patient will follow Phase I monitoring till PAR is reached for Phase II. The Phase I may be done in procedure room or may call to secure a Phase I area. * If naloxone or flumazenil are used for reversal, hold in Phase I for continued monitoring from when last reversal dose was given for a minimum of 60 minutes or longer pending the nurse and/or physician discretion of patient condition before discharge to Phase II. Please call the Sedation Physician to re-evaluate and complete post-note for discharge to Phase II area. Do NOT discharge from procedure sedation or Phase 1 until post- sedation teresa luation note is complete by procedure /sedation MD Sedation Discharge Instructions to be given to the patient at discharge to home.
--- NOTE | 2021-02-03 12:14 | Cardiac Catheterization ---
Date of Service February 03, 2021 Cardiac Cath Report Cardiac Cath Report Procedure: 1. Coronary angiography History: This is a 65-year-old female who was admitted after an equivocal exercise stress test. Procedure summary: After informed consent was obtained the patient was taken the cardiac catheterization lab where she was prepped and draped in the usual manner for a right radial artery approach. Preformed 5 [place] diagnostic catheters were utilized for the coronary angiograms. Following the procedure the patient was returned to her room in stable condition. ACC data: Start time 11:48 AM End time 11:59 AM Opening aortic pressure 129/79 Closing aortic pressure 123/78 LV pressurevalve not crossed Sedation 1 mg intravenous Versed IV fluid 35 cc normal saline Contrast 40 cc Visipaque Fluoroscopy time 1.6 minutes Radiation 361 mGy Dap 27.22 cGy/m Right dominant system AUC score 7 Coronary angiography: Selective injections of the right coronary artery reveal it to be dominant. The right coronary artery is smooth in appearance widely patent and within normal limits. Injections into the left coronary artery revealed the left main trunk to be widely patent. There is a large ramus branch from the proximal left circumflex artery which is widely patent the left circumflex then continues on and gives to large posterior marginal branches. The left circumflex system is smooth in appearance widely patent and within normal limits. The LAD extends to the apex of the heart. The LAD gives off a large diagonal branch in its mid segment. The LAD system is smooth appearance widely patent and within normal limits. Summary: The patient's coronary anatomy is widely patent and normal. Recommendations: Continued risk factor modification.
--- NOTE | 2021-02-03 12:32 | Discharge Summary ---
Date of Service February 03, 2021 Admission HPI Per Admitting Provider This is a 65-year-old female with past medical history significant for history of thyrotoxicosis without mention of goiter, irritable bowel syndrome, depression, presents with chest pain. The patient was recently diagnosed with UTI and getting a 10-day treatment with nitrofurantoin; last dose is tomorrow. The lower abdominal pain is improving, but still has some increased micturition. She says she is getting chest pain on and off since October. She recently had an exercise stress echocardiogram on 01/30/2021, it showed diffuse left ventricular hypokinesis with EF of 50% without regional wall motion abnormalities. Post-exercise, no focal stress-induced wall motion abnormalities were noted; however, the left ventricular systolic function did not increase with exercise and also there are some ST segment changes noted to be equivocal and she again went to cardiology office today because of some chest pain on the left side below the breast region, 5/10 in severity, as well pressure like feeling. It lasted for about half an hour. She still has now very minimal chest discomfort. Denies any shortness of breath. No nausea, no dizziness. She has some dry cough on and off. No fever, no chills, no dysphagia. Appetite is okay. No headache, no blurred vision, no earache, no runny nose, no sore throat, no abdominal pain currently. She has diarrhea from her irritable bowel syndrome. She thinks her stools are little black from the antibiotic. Ambulating without support. Lives alone. Admission Exam Per Admitting Provider GENERAL: The patient is of moderate build, not in acute distress. VITAL SIGNS: Temperature 36.4, pulse 87, respirations 17, blood pressure 152/81, oxygen 98% on room air. HEENT: Pupils equal, round, reactive to light. Oral mucosa moist. NECK: No JVD seen, no neck masses seen. CARDIOVASCULAR: S1, S2 heard, regular rate and rhythm, no murmur, no gallop. RESPIRATORY SYSTEM: Normal AP diameter. No accessory muscle use. No wheezing, no crackles. ABDOMEN: Soft, bowel sounds present, nontender. No distention. CENTRAL NERVOUS SYSTEM: Cranial nerves II-XII grossly intact. Nonfocal. EXTREMITIES: Mild pedal edema, no erythema seen. Principal Diagnosis Unstbale angina Discharge Exam General: A&Ox3 HENT: NCAT, MMM, EOMI Eyes: PERRLA Neck: Supple, normal range of motion CVS: normal rate and rhythm Resp: b/l good breath tounds Abdomen: Soft, ND/N Extremities: No c/c/e Neuro: face symmetric, strength grossly equal, no focal deficit Skin: warm and dry, no rashes/lesions/errythema MSK: normal ROM, no joint swelling/erythema Discharge Data Allergies Allergy/AdvReac Type Severity Reaction Status Date / Time Penicillins AdvReac Mild yeast Verified 02/02/21 16:46 infection Consultations 02/02/21 17:00 Consult Cardiology Stat ED Decision to Admit Stat Procedures Performed Operation Date: 02/03/21 11:00 Actual Procedures s Cineradiography w/Routine Exam - Spencer Recio DO p Cath, Coronaries ONLY (no LV) - Spencer Recio DO Ordered Studies 02/03/21 11:38 CL Cath Imgs for PACS use only Stat Hospital Course (1) Unstable angina pectoris: Patient is 65-year-old female who was admitted with chest pain with possibly secondary to unstable angina. Patient did have abnormal stress test on 01/30/2021. Cardiology was consulted. Patient underwent cardiac catheterization. She was found to have normal coronary arteries patient was started on aspirin and Lipitor. Patient will follow up with her PCP as an outpatient. Total Time Total Time Spent Total Time Spent (In Minutes): 35 Discharge Plan Discharge Items Patient Disposition: Home - Self-Care Reason For Visit: UNSTABLE ANGINA Discharge Diagnosis: chest pain Activity: Resume your previous activity Non-emergency contact: Primary Care Provider Call non-emergency contact if: your symptoms worsen Follow-up/Referrals: Evy Grant DO [Primary Care Provider] - Diet: Heart Healthy Addtl Attending Provider Instructions: Follow-up with your primary care physician within 1 week. Pending Studies at Discharge: Yes Stand-Alone Forms: [employer], Smoking Cessation Medications and DC Order Prescriptions: New aspirin 81 mg Tablet,Delayed Release (Dr/Ec) 81 mg PO QAM Qty: 30 RF: 0 atorvastatin 40 mg Tablet 40 mg PO HS Qty: 30 RF: 0 Continued ibuprofen 200 mg tablet 200 mg PO TID PRN (Reason: Pain) RF: 0 acetaminophen 325 mg tablet 325 mg PO Q4H PRN (Reason: Pain) RF: 0 vitamin B complex capsule 1 cap PO DAILY RF: 0 cholecalciferol (vitamin D3) 2,000 unit tablet 2,000 units PO DAILY RF: 0 multivitamin Tablet 1 tab PO DAILY RF: 0 omeprazole 20 mg capsule,delayed release(DR/EC) 20 mg PO DAILY RF: 0 hydroxyzine HCl 10 mg tablet 10 mg PO Q6H PRN (Reason: Anxiety) RF: 0 Discharge Orders: Discharge Order (Routine); Ordered 02/03/21 Ordered By: Osmar Soriano Admission Data Admit Date/Time: 02/02/21 17:38 Attending Provider: Osmar Soriano Admit Provider: Charan Cordova Primary Care Provider: Evy Grant Other Providers: Spencer Recio ; Charan Cordova
--- NOTE | 2021-02-03 14:21 | Electrocardiogram Report ---
Test Reason : Blood Pressure : / mmHG Vent. Rate : 083 BPM Atrial Rate : 083 BPM P-R Int : 138 ms QRS Dur : 080 ms QT Int : 370 ms P-R-T Axes : 065 024 046 degrees QTc Int : 434 ms Normal sinus rhythm with sinus arrhythmia Normal ECG No previous ECGs available Confirmed by John Hurd ([id number]) on 02/03/2021 2:20:43 PM Referred By: Mo Delarosa Confirmed By:John Hurd
--- NOTE | 2021-02-03 15:09 | Electrocardiogram Report ---
Test Reason : Blood Pressure : / mmHG Vent. Rate : 077 BPM Atrial Rate : 077 BPM P-R Int : 136 ms QRS Dur : 078 ms QT Int : 382 ms P-R-T Axes : 066 034 058 degrees QTc Int : 432 ms Normal sinus rhythm Normal ECG When compared with ECG of 02-FEB-2021 16:40, (unconfirmed) No significant change was found Confirmed by John Hurd ([id number]) on 02/03/2021 3:09:14 PM Referred By: Mo Delarosa Confirmed By:John Hurd
== END 2021-02-03 17:29 | disposition home or self-care (01) | DRG 287 ==
LOC: ED 16:00 → 2S 17:38 → SUATTDRO 17:38 → 2S 20:22
PROC: CLB.CCO (2021-02-03 11:00)